=== PATIENT | female | born 1995 | race Hispanic/Latino ===

== ENCOUNTER 2025-04-01 05:33 | Emergency (ER) | payer MEDICAID ==
[~2025-04-01] VITALS: Ht 157.5 cm; Wt 69.9 kg
[2025-04-01 06:15] LABS: BASOPHILS # (AUTO) 0.01 K/uL (0.00-0.20); BASOPHILS % (AUTO) 0.1 % (0.0-5.0); EOSINOPHILS # (AUTO) 0.18 K/uL (0.00-0.70); EOSINOPHILS % (AUTO) 2.5 % (0.0-8.0); HEMATOCRIT 33.6 % (36-48); IMMATURE GRANULOCYTE ABSOLUTE 0.03 K/uL (0-1); LYMPHOCYTES # (AUTO) 2.2 K/uL (1.0-4.8); LYMPHOCYTES % (AUTO) 30.5 % (21.0-51.0); MEAN CORPUSCULAR HEMOGLOBIN 28.4 pg (27.0-33.0); MEAN CORPUSCULAR HGB CONC 32.4 g/dL (32.0-36.0); MEAN CORPUSCULAR VOLUME 87.5 fL (79-99); MONOCYTES # (AUTO) 0.6 K/uL (0.1-1.0); MONOCYTES % (AUTO) 8.6 % (3.0-13.0); NEUTROPHILS # (AUTO) 4.2 K/uL (1.8-7.7); NEUTROPHILS % (AUTO) 57.9 % (40.0-77.0); PLATELET COUNT (AUTO) 156 K/uL (130-400); RED BLOOD CELL COUNT(AUTO) 3.84 MIL/uL (4.00-5.50); RED CELL DISTRIBUTION WIDTH 13.8 % (11.0-15.5); WHITE BLOOD COUNT (AUTO) 7.3 K/uL (4.8-10.8)
--- NOTE | 2025-04-01 06:16 | ERN ---
ED Note History of Present Illness Stated Complaint: C/O SORE THROAT,DRY COUGH;VAGINAL SPOTTING Chief Complaint: Multiple Complaints Time Seen by MD: 05:49 Dictation: This is a 29-year-old female who presented to the emergency room with multiple complaints including sore throat dry cough as well as vaginal spotting that started today. She stated that she was 10 weeks also. No history of any fever chills. The URI symptoms are extremely vague and her throat feels dry. Vaginal spotting is extremely minor no history of any clots or using pads. Temperature 97.7 pulse 80 respirations 20 blood pressure 103/59 with a pulse oximetry of 100% on room air Allergies: Coded Allergies: No Known Allergies (Unverified Allergy, Unknown, 04/01/25) Past Medical History Past Medical History: No Pertinent History Surgical History: None Family History: Negative Social History: Negative LMP: Jan 12, 2025 : 1 Para: 0 Aborts: 0 RN Note Reviewed/Agreed w/PFSH: Yes Review of System Dictation Constitutional: Negative for fever,chills, and weight loss Eyes: Negative for injury, pain,redness, and discharge ENT: Negative for injury,pain or swelling positive for URI symptoms and sore throat Cardiovascular: Negative for chest pain, palpitations, and edema Respiratory: Negative for shortness of breath, cough, and wheezing, Abdomen/GI: Negative for abdominal pain, nausea, vomiting, diarrhea, and const ipation Back: Negative for injury and pain : Negative for injury, positive for vaginal spotting MS/Extremity: Negative for injury and deformity Skin: Negative for rash, and discoloration Neuro: Negative for headache, weakness, numbness, tingling, and seizure Psych: Negative for suicide ideation, homicidal ideation, and hallucinations Initial Vital Sign VS Vital Signs Date Time Temp Pulse Resp B/P (MAP) Pulse Ox O2 Delivery O2 Flow Rate FiO2 04/01/25 05:37 97.7 80 20 103/59 100 Room Air 04/01/25 07:53 0 21 Physical Exam Dictation General: awake, alert, NAD Head/Face: Normocephalic, atraumatic Eyes: PERRL, EOMI, vision at baseline ENT: oral cavity clear, TMs clear, no signs of infection Neck: Trachea midline, supple, no nuchal rigidity Cardiovascular: RRR, normal S1/S2, No MRGs, no JVD Respiratory: CTAB, no respiratory distress, No rales or wheezes Abdomen: Soft, non-tender, non-distended, normal bowel sounds, no guarding or rebound. Skin: Warm, dry, normal turgor, no rash MS/Extremity: Pulses equal, no cyanosis, neurovascular intact, FROM Neuro: COAx4, GCS 15, strength 5/5, CN 2-12 intact, normal cerebellar exam, normal gait, Psych: Normal behavior, mood, and affect normal Extremities-trace edema without any palpable cords, Homans sign is negative Results (Laboratory/Radiology) Laboratory/Radiology Laboratory Tests Test 04/01/25 06:05 04/01/25 07:31 04/01/25 08:38 White Blood Count 7.3 K/uL (4.8-10.8) Red Blood Count 3.84 MIL/uL (4.00-5.50) L Hemoglobin 10.9 g/dL (12.0-16.0) L Hematocrit 33.6 % (36-48) L Mean Corpuscular Volume 87.5 fL (79-99) Mean Corpuscular Hemoglobin 28.4 pg (27.0-33.0) Mean Corpuscular Hemoglobin Concent 32.4 g/dL (32.0-36.0) Red Cell Distribution Width 13.8 % (11.0-15.5) Platelet Count 156 K/uL (130-400) Mean Platelet Volume 11.0 fL (7.5-10.5) H Immature Granulocyte % (Auto) 0.4 % (0-1) Neutrophils (%) (Auto) 57.9 % (40.0-77.0) Lymphocytes (%) (Auto) 30.5 % (21.0-51.0) Monocytes (%) (Auto) 8.6 % (3.0-13.0) Eosinophils (%) (Auto) 2.5 % (0.0-8.0) Basophils (%) (Auto) 0.1 % (0.0-5.0) Neutrophils # (Auto) 4.2 K/uL (1.8-7.7) Lymphocytes # (Auto) 2.2 K/uL (1.0-4.8) Monocytes # (Auto) 0.6 K/uL (0.1-1.0) Eosinophils # (Auto) 0.18 K/uL (0.00-0.70) Basophils # (Auto) 0.01 K/uL (0.00-0.20) Absolute Immature Granulocyte (auto 0.03 K/uL (0-1) Nucleated Red Blood Cells 0.0 % (0.0-0.19) Sodium Level 140 mmol/L (136-145) Potassium Level 3.4 mmol/L (3.5-5.1) L Chloride Level 106 mmol/L (101-111) Carbon Dioxide Level 27 mmol/L (21-32) Blood Urea Nitrogen 10 mg/dL (7-18) Creatinine 0.5 mg/dL (0.5-1.0) Glomerular Filtration Rate Calc 129 mL/min (>90) Random Glucose 88 mg/dL (70-105) Total Calcium 8.3 mg/dL (8.5-10.1) L Human Chorionic Gonadotropin, Quant 24973 mIU/mL (0-5) H Influenza Type A Antigen Negative For Type A Influenza Type B Antigen Negative For Type B SARS-CoV-2 Antigen (Rapid) PRESUMPTIVE NEGATIVE Group A Streptococcus Rapid negative (NEGATIVE) Urine Color LIGHT-YELLOW (YELLOW) Urine Appearance CLOUDY (CLEAR) H Urine pH 6.5 (5.0-8.0) Urine Specific [place] 1.017 (1.001-1.031) Urine Protein NEGATIVE mg/dL (NEGATIVE) Urine Glucose (UA) NEGATIVE mg/dL (NEGATIVE) Urine Ketones 10 mg/dL (NEGATIVE) H Urine Occult Blood NEGATIVE (NEGATIVE) Urine Nitrate NEGATIVE (NEGATIVE) Urine Bilirubin NEGATIVE mg/dL (NEGATIVE) Urine Urobilinogen 0.2 mg/dL (0.2-1.0) Urine Leukocyte Esterase NEGATIVE Vivienne/uL Urine RBC 0-1 /HPF (0-1) Urine WBC 0-1 /HPF (0-1) Urine Squamous Epithelial Cells FEW /HPF (0-2) Urine Amorphous Crystals (Auto) RARE /LPF (None Seen) Urine Bacteria RARE /HPF (None Seen) Labs Reviewed?: Yes ED Course ED Course Orders Procedure Category Date Status Time Cbc With Differential LAB 04/01/25 Complete 05:50 Hcg,Quantitative LAB 04/01/25 Complete 05:50 Us Ob <14 Weeks US 04/01/25 Resulted 05:50 Basic Metabolic Panel LAB 04/01/25 Complete 05:50 Acetaminophen 500mg PHA 04/01/25 Complete Tab (Tylenol 500mg T 06:00 Influenza Type A & B, LAB 04/01/25 Complete Rapid 06:15 Rapid (Group A Strep) LAB 04/01/25 Complete 06:15 Covid19 (Sars Antigen LAB 04/01/25 Complete Rapid) 06:15 Urinalysis Profile LAB 04/01/25 Complete 06:15 Current Medications Medications (Trade) Dose Ordered Sig/Sherine Route PRN Reason Start Time Stop Time Status Last Admin Dose Admin Acetaminophen (TYLenol 500MG TAB) 1,000 mg ONCE ONCE PO 04/01/25 06:00 04/01/25 06:01 DC 04/01/25 08:15 Vital Signs Date Time Temp Pulse Resp B/P (MAP) Pulse Ox O2 Delivery O2 Flow Rate FiO2 04/01/25 07:53 98.1 87 16 105/56 100 Room Air* 0 21 04/01/25 05:37 97.7 80 20 103/59 100 Room Air We will perform diagnostic labs, advanced imaging and administer medications according to the patient's complaint. Once the results are available, will review and personally interpreted the labs to rule out any acute life- threatening emergency the trach require immediate intervention and treatment. I will then re-evaluate the patient after treatment and diagnostic exams have return to determine whether the patient requires any further testing, can safely be discharged home or need further admission to hospital for additional treatment and evaluation. Medical Decision Making MDM MDM: DIFFERENTIAL DIAGNOSIS: NEWLY DIAGNOSED , GENERALIZED WEAKNESS, BODY ACHES RATIONALE: TESTS CONSIDERED AND ORDERED SECONDARY TO SHARED DECISION MAKING INCLUDE: PREVIOUS OUTSIDE RECORDS REVIEWED: OLD ER VISITS. RISK OF COMPLICATION AND/OR MORBIDITY OR MORTALITY OF PATIENT MANAGEMENT: NONE MEDICATIONS-PER MEDICATION RECONCILIATION PATIENT IS A 29-YEAR-OLD FEMALE COMING IN TO BE EVALUATED FOR MULTIPLE COMPLAINTS. PATIENT STATES THAT SHE HAS BEEN HAVING THESE SYMPTOMS BED. PATIENT WILL BE TOLD SHE WAS COMES IN TO BE EVALUATED. ULTRASOUND DID NOT DISCLOSE ACUTE FINDINGS. PATIENT HAS BEEN RESTING COMFORTABLY TODAY NIGHT. PATIENT WILL BE DISCHARGED IN STABLE CONDITION WITH A DIAGNOSIS OF NEWLY DIAGNOSED . DX & DISP Disposition: Discharge Departure Impression: Primary Impression: Concern about current without diagnosis Condition: Stable Scripts Docosahexanoic Acid ( Dha) 200 Mg Capsule 1 CAP PO DAILY for 30 Days, #30 CAP 0 Refills Prov: BASILIO MAJOR MD 04/01/25 Additional Instructions: FOLLOW-UP WITH PRIMARY CARE PROVIDER IN 1 TO 2 DAYS. TAKE MEDICATIONS DIRECTED HERE IN THE EMERGENCY ROOM. OKAY TO CONTINUE HOME MEDICATIONS UNLESS OTHERWISE DISCUSSED DURING YOUR VISIT IN THE EMERGENCY ROOM TODAY. RETURN TO YOUR NEAREST EMERGENCY ROOM IF SYMPTOMS WORSEN OR IF THERE IS NO IMPROVEMENT. CALL 911 IF YOU NEED IMMEDIATE ASSISTANCE. TAKE TYLENOL [id number] NEEDED AND IF NO CONTRAINDICATIONS ARE PRESENT. INCREASE ORAL HYDRATION. A WOUND CULTURE OR URINE CULTURE WAS ORDERED HERE IN THE EMERGENCY ROOM DEPARTMENT PLEASE FOLLOW-UP WITH PRIMARY CARE PROVIDER AND ADVISE THEM TO GET REPEAT PORTS FROM OUR FACILITY. IF YOU HAD ANY MIGUEL WRAP/SPLINTS THAT WERE APPLIED HERE, PLEASE DO NOT REMOVE THEM UNTIL YOU SEE YOUR PRIMARY CARE OR SPECIALTY. REFERRALS: Referrals: SELF,REFERRAL (PCP) TIMOTHY LANTIGUA MD Time of Disposition: 09:36 KIET THURMAN MD April 01, 2025 06:16 BASILIO MAJOR MD April 01, 2025 09:37
[2025-04-01 06:53] LABS: CREATININE 0.5 mg/dL (0.5-1.0); POTASSIUM 3.4 mmol/L (3.5-5.1)
--- NOTE | 2025-04-01 07:00 | NUR ---
ASSUMED PATIENT CARE AT THIS TIME
--- NOTE | 2025-04-01 07:38 | NUR ---
COVID, FLU, AND STREP TEST TAKEN
[2025-04-01 07:53] LABS: RAPID GROUP A STREP negative (NEGATIVE)
[2025-04-01 08:03] LABS: INFLUENZA TYPE A Negative For Type A (NEGATIVE); INFLUENZA TYPE B Negative For Type B (NEGATIVE)
[2025-04-01 08:04] LABS: COVID19 (SARS ANTIGEN RAPID) PRESUMPTIVE NEGATIVE (NEGATIVE)
[2025-04-01] MEDS: acetaMINOPHEN 500 MG TABLET PO ONE (08:15)
--- NOTE | 2025-04-01 08:54 | HMCIMG ---
TRANSABDOMINAL AND TRANSVAGINAL PELVIC ULTRASOUND; DATED 04/01/2025 8:52 AM CDT. CLINICAL INDICATION : VAGINAL BLEEDING FINDINGS: Single live intrauterine gestation in the fundal endometrium. No perigestational sac hematoma identified. CRL measures 4.29 cm , corresponds to 11 weeks 1 day. cardiac activity and heart rate is 160 beats per minute. The uterus is anteverted with normal shape. The myometrium is homogeneous and there is no evidence of focal or diffuse lesions. Both ovaries appear normal with normal flow on color and Spectral Doppler. No adnexal masses. No free fluid or collections. Urinary bladder appears normal. IMPRESSION: 1. Single live intrauterine gestation with parameters as noted above.
[2025-04-01 09:08] LABS: APPEARANCE,URINE CLOUDY (CLEAR); BILIRUBIN,URINE NEGATIVE (NEGATIVE); COLOR,URINE LIGHT-YELLOW (YELLOW); GLUCOSE, URINE (UA) NEGATIVE (NEGATIVE); KETONES,URINE 10 mg/dL (NEGATIVE); LEUKOCYTE ESTERASE ,URINE NEGATIVE Leu/uL (NEGATIVE); NITRATE,URINE NEGATIVE (NEGATIVE); OCCULT BLOOD,URINE NEGATIVE (NEGATIVE); PH,URINE 6.5 (5.0-8.0); PROTEIN,URINE NEGATIVE (NEGATIVE); UROBILINOGEN,URINE 0.2 mg/dL (0.2-1.0)
[2025-04-01 09:12] LABS: ADD UA MICROSCOPIC YES
[2025-04-01 09:16] LABS: BACTERIA,URINE RARE /HPF (None Seen); MUCUS,URINE RARE LPF (None Seen); RBC,URINE 0-1 /HPF (0-1); SQUAMOUS EPITHELIAL CELL,UR FEW /HPF (0-2); WBC,URINE 0-1 /HPF (0-1)
[2025-04-01] MEDS ORDERED: DOCO200C5 PO (09:37)
[2025-04-01] MEDS: 0.9%NACL 1000ML 1,000 ML IV ONE (09:55)
--- NOTE | 2025-04-01 10:00 | NUR ---
DC DELAYED DUE TO PATIENTS LOW BP OF 84/38, DR MAJOR, AND ORDERED TO BOLUS 2 L OF NS PATIENT DENEIS CHEST PAIN , SOB AND IS RESTING IN BED , CALL LIGHT IN REACH
[2025-04-01] MEDS: 0.9%NACL 1000ML 1,000 ML IV SCH (11:05)
[2025-04-01 11:51] VITALS: BP 113/56; PULSE 79; RESP 16; TEMP 98.3; O2SAT 100
--- NOTE | 2025-04-01 11:54 | NUR ---
PATIENTS BP IMPROVED TO 113/56 AFTER 2L OF BOLUS
--- NOTE | 2025-04-01 12:04 | NUR ---
DC PATIENT WAS DC'D BY MORIAH CESPEDES, I DC'D PATIENTS IV WITH CATH STILL IN PLACE AND APPLIED 2X2 GAUZE WITH TAPE I EXPLAINED TO PATIENT TO FOLLOW UP WITH PCP AND OBGYN, I EXPLAINED TO TAKE NEW PRESCRIPTIONS DIRECTED, PATIENT AMBULATED OUT OF ED, NO COMPLICATIONS
== END 2025-04-01 11:58 | disposition home or self-care (01) ==
LOC: EDH 05:33
DX: O26.891 Other specified pregnancy related conditions, first trimester (principal); J02.9 Acute pharyngitis, unspecified; R10.2 Pelvic and perineal pain; R05.9 Cough, unspecified; O26.851 Spotting complicating pregnancy, first trimester; Z3A.11 11 weeks gestation of pregnancy; Z20.822 Contact with and (suspected) exposure to COVID-19
CPT/HCPCS: 99285; 96360; 76801; 87426; 80048; 84702; 85025; 87880; 87804 ×2; 81001; 36415; J7030